=== PATIENT | male | born 1985 | race Caucasian/White ===

== ENCOUNTER 2024-01-21 21:52 | Inpatient (IN) | payer OTHER ==
[2024-01-21 22:31] VITALS: BMI 25.3
[2024-01-21] MEDS ORDERED: BENZOCAINE/MENTHOL (CHLORASEPTIC ) LOZENGE MM PRN (23:22)
[2024-01-21] MEDS ORDERED: NICOTINE POLACRILEX 2 MG LOZENGE BC PRN (23:22)
[2024-01-21] MEDS ORDERED: NALOXONE HCL 0.4 MG/ML VIAL IM PRN (23:22)
[2024-01-21] MEDS ORDERED: NALOXONE (NARCAN) HCL 4 MG/0.1 ML SPRAY NS PRN (23:22)
[2024-01-21] MEDS ORDERED: POLYETHYLENE GLYCOL (HEALTHYLAX) 3350 17 GM PACKET PO PRN (23:22)
[2024-01-21] MEDS ORDERED: IBUPROFEN 400 MG TABLET (FP) PO PRN (23:22)
[2024-01-21] MEDS ORDERED: IBUPROFEN 600 MG TABLET (FP) PO PRN (23:22)
[2024-01-21] MEDS ORDERED: MAG HYDROX/AL HYDROX/SIMETH 30 ML UNIT-DOSE CUP PO PRN (23:22)
[2024-01-21] MEDS ORDERED: BENZONATATE 200 MG CAPSULE PO PRN (23:22)
[2024-01-21] MEDS ORDERED: guaiFENesin 600 MG TABLET.ER (FP) PO PRN (23:22)
[2024-01-21] MEDS ORDERED: ACETAMINOPHEN 325 MG TABLET (FP) PO PRN (23:22)
[2024-01-21] MEDS ORDERED: DICYCLOMINE HCL 10 MG CAPSULE PO PRN (23:22)
[2024-01-21] MEDS ORDERED: MAGNESIUM HYDROX 2400MG/30ML ORAL SUSPENSION 30 ML CUP PO PRN (23:22)
[2024-01-21] MEDS ORDERED: P-EPHED 60MG/TRIPROLIDI 2.5MG TABLET PO PRN (23:22)
[2024-01-21] MEDS ORDERED: NICOTINE POLACRILEX 2 MG GUM BUC PRN (23:22)
[2024-01-22] MEDS: BUPRENORPHINE/NALOXONE 2 MG/0.5 MG FILM PACKET SL SCH (10:11)
[2024-01-22] MEDS: PRENATAL VITAMINS W/ FOLIC ACID TABLET (FP) PO SCH (10:11)
[2024-01-22 12:54] LABS: HEMATOCRIT 40.6 % (35.4-49); HEMOGLOBIN 13.5 GM/dL (11.7-16.9); MCH 32.3 pg (25.7-33.7); MCHC 33.3 g/dl (32.0-35.9); MEAN CELL VOLUME 96.9 fl (80-96); PLATELET COUNT 301 10^3/uL (134-434); RBC 4.19 M/mm3 (4.00-5.60); RDW 16.1 % (11.9-15.9); WHITE BLOOD COUNT 5.5 K/mm3 (4.0-10.0)
[2024-01-22 12:58] LABS: POTASSIUM 4.6 mmol/L (3.5-5.1)
[2024-01-22 13:01] LABS: ALBUMIN 3.8 g/dl (3.4-5.0)
[2024-01-22 13:03] LABS: CALCIUM 9.5 mg/dL (8.5-10.1)
[2024-01-22 13:05] LABS: CREATININE 0.9 mg/dL (0.55-1.3)
[2024-01-22 13:06] LABS: BILIRUBIN,TOTAL 0.3 mg/dL (0.2-1); TOT PROT 7.6 g/dl (6.4-8.2)
[2024-01-22] MEDS ORDERED: diazePAM 5 MG TABLET PO PRN (13:07)
[2024-01-22] MEDS: diazePAM 5 MG TABLET PO SCH (17:12)
[2024-01-22] MEDS: THIAMINE 100 MG TABLET PO SCH (22:09)
[2024-01-22] MEDS: MELATONIN 5 MG TABLETS PO SCH (22:09)
[2024-01-23] MEDS: ONDANSETRON *ODT* 4 MG TABLET SL PRN (22:28)
[2024-01-24] MEDS: diazePAM 5 MG TABLET PO SCH (05:27)
[2024-01-24] MEDS: BUPRENORPHINE/NALOXONE 2 MG/0.5 MG FILM PACKET SL ONE (11:55)
[2024-01-24] MEDS: LOPERAMIDE HCL 2 MG CAPSULE PO PRN (14:07)
[2024-01-25] MEDS: diazePAM 5 MG TABLET PO SCH (05:19)
[2024-01-25] MEDS: NICOTINE 14 MG/24 HOURS TOPICAL PATCH TD SCH (10:45)
[2024-01-25] MEDS: BISMUTH SUBSALICYLATE 524 MG/30 ML PO PRN (18:09)
[2024-01-26] MEDS: diazePAM 5 MG TABLET PO ONE (05:21)
[2024-01-26] MEDS: METHOCARBAMOL 500 MG TABLET PO PRN (13:58)
[2024-01-26] MEDS: hydrOXYzine PAMOATE 25 MG CAPSULE (FP) PO PRN (22:18)
[2024-01-27 07:45] VITALS: PULSE 65; RESP 16
[2024-01-27 09:21] VITALS: BP 102/71; TEMP 98.4
== END 2024-01-27 09:29 | disposition home or self-care (01) | DRG 773 ==
LOC: YASAS 21:52 → Y6N 01-22 00:59
PROVIDERS: ADMIT Allergy & Immunology; ATTEND Surgery
PROC: HZ2ZZZZ Detoxification Services for Substance Abuse Treatment (ICD-10-PCS; principal; 2024-01-22)
DX: F13.230 Sedative, hypnotic or anxiolytic dependence with withdrawal, uncomplicated (principal); F11.20 Opioid dependence, uncomplicated; F17.210 Nicotine dependence, cigarettes, uncomplicated
CPT/HCPCS: 36415; 80053; 80305; 85027; 86780; 93005; 93010; Q0162